=== PATIENT | female | born 1960 | race Two or more races ===

== ENCOUNTER → 2017-07-03 | Day surgery (SDC) | payer BC ==
[~2017-07-03] MED LIST: BUPIVACAINE/EPINEPHRINE 0.5% PF 30 ML VIAL INFIL ONE; KETOROLAC TROMETHAMINE 30 MG/ML (IVP) VIAL IV PUSH ONE; LACTATED RINGER'S 1000 ML INJ 1,000 ML ONE; LIDOCAINE 1%/EPINEPHrine 1:100,000 SOLN 20 ML VIAL ONE; MIDAZOLAM HCL 2 MG/2 ML VIAL ONE; ONDANSETRON HCL 4 MG/2 ML VIAL IV PUSH ONE; PREM0.622 PO; PROPOFOL 100 MG/10 ML INJ IV ONE; ceFAZolin INJ 1,000 MG VIAL ONE
--- NOTE | 2017-07-03 11:10 | TN ---
cc: CLAUDE VAZQUEZ M.D., JOSEPH D. M.D. 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 PROCEDURE Excision of a chronic wound with probable foreign body in the deep subcutaneous tissue measuring 6 x 3 cm. ANESTHESIA TIVA with local SURGEON Dr. Portillo INDICATIONS This is a pleasant female who was out in her garden working and she thinks she has a thorn such in her abdomen that has been treated conservatively without healing. It is a chronic draining wound. Plans were made for above. PROCEDURE The patient taken to the operating room, placed in the position. After anesthesia, her right lower abdomen was prepped with Betadine. We previously marked the area and it is easily visualized with a chronic irritation of the skin noted. An elliptical incision was made 6 x 3 cm to completely excise the ulcerated skin. We then dissect down to deep normal adipose tissues. This is completely remove and then irrigated copiously. There was no active infection involved in the skin edges and the subcutaneous edges. We then simply just reapproximate the skin with an interrupted nylon suture and a sterile bandage applied. The patient tolerated the procedure well. Had no immediate postop complications. The tissue was sent down to pathology. MD FUAD Read/BERNABE /11:01 AM /11:04 AM
== END | disposition home or self-care (01) ==
LOC: ESDC 09:32
PROVIDERS: ATTEND Surgery
DX: S31.109A Unspecified open wound of abdominal wall, unspecified quadrant without penetration into peritoneal cavity, initial encounter (principal)
CPT/HCPCS: 00400; 11406; 88305; J0690; J1885; J2250; J2405; J3010; J7120; 88300